=== PATIENT | female | born 1955 | race Caucasian/White ===

== ENCOUNTER 2016-07-25 05:57 | Inpatient (IN) | payer BC, OTHER ==
[2016-07-25] MEDS ORDERED: OXYCODONE (OxyCONTIN) 20 MG TAB PO ONE (06:40)
[2016-07-25] MEDS ORDERED: ACETAMINOPHEN 325 MG/TAB TABLET PO ONE (06:40)
[2016-07-25] MEDS ORDERED: GABAPENTIN 300 MG CAP ONE (06:41)
[2016-07-25 06:42] LABS: BLOOD UREA NITROGEN 15 MG/DL (7-17); CALCIUM 9.1 MG/DL (8.4-10.2); CALCULATED OSMOLALITY 267 MOs/Kg (270-290); CHLORIDE 102 mEq/L (98-107); GLUCOSE 102 MG/DL (70-99); SODIUM LEVEL 138 mEq/L (137-146)
[2016-07-25] MEDS ORDERED: Celecoxib 200 MG CAP PO ONE (06:42)
[2016-07-25] MEDS ORDERED: CEFAZOLIN 1 GM VIAL ONE (06:42)
[2016-07-25] MEDS ORDERED: DEXAMETHASONE 4 MG/ML VIAL ONE (06:45)
[2016-07-25] MEDS ORDERED: TRANEXAMIC ACID 1,000 MG in NS 100 ML IV ONE ×4 (07:00)
[2016-07-25] MEDS ORDERED: BACITRACIN 50,000 UNITS VIAL ONE (07:16)
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
[2016-07-25] MEDS ORDERED: ONDANSETRON HCL 4 MG ODT TAB PO PRN (07:21)
[2016-07-25] MEDS ORDERED: hydrALAZINE 20 MG/ML VIAL IV PRN (07:21)
[2016-07-25] MEDS ORDERED: FENTANYL 100 MCG/2 ML VIAL IV PRN (07:21)
[2016-07-25] MEDS: BUPIVACAINE LIPOSOME/PF 1.3% 20 ML VIAL INF ONE ×2 (07:21→08:25)
[2016-07-25] MEDS ORDERED: ONDANSETRON HCL 4 MG/2 ML VIAL IV PRN ×2 (07:21→10:52)
[2016-07-25] MEDS ORDERED: LABETALOL 20 MG/4 ML SYRINGE IV PRN (07:21)
[2016-07-25] MEDS ORDERED: MEPERIDINE 25 MG/ML TUBEX IV PRN (07:21)
--- NOTE | 2016-07-25 10:45 | HIMOPRPT ---
DATE OF PROCEDURE: DATE OF PROCEDURE: 07/25/16 PREOPERATIVE DIAGNOSIS: [avascular necrosis right hip] POSTOPERATIVE DIAGNOSIS: [Same] PROCEDURE: [Right] total hip arthroplasty SURGEON: Arnulfo Knight D.O. LITHARGE SUPERVISOR: [Axel Rosas PA-C] ANESTHESIA: GETA ESTIMATED BLOOD LOSS: [250 cc] COMPLICATIONS: none DRAINS: [hemovac] SPECIMENS: Femoral head FINDING: as above INDICATIONS FOR PROCEDURE: Avascular necrosis right femoral head. Right hip pain. Failure of conservative measures. DESCRIPTION OF PROCEDURE: IMPLANTS: Elana Size #[5] Accolade 2 Femoral stem. [127] degree neck angle Biolox delta [36mm -2.5mm] ceramic head [50]mm Trident PSL acetabular shell [1 6.5mm 35mm] long acetabular screw [0 degree X3 poly liner] Description: SALINA FUENTES is a 61-year-old F who [has a history of avascular necrosis of the right hip/femoral head]. She complained of severe pain within the right hip and groin area limiting her function and activities of daily living. She had failed other conservative measures and elected to proceed with right total hip arthroplasty. All risks, benefits, and alternatives to the planned surgery were discussed with the patient. The patient did understand these risks and elected to proceed. On the date of the procedure SALINA was identified in the preop holding area. The [right] lower extremity was marked as the correct operative side. The patient was then taken to the operating room where successful induction of general anesthesia was performed. Patient was given Ancef 2 g IV as well as 1 g IV of Tranexamic acid prior to incisions being made. The patient was positioned in the lateral decubitus position with all bony prominences well padded and the [right] side up. The [right] lower extremity was then prepped and draped in sterile fashion. A prescrub was performed with chlorhexidine scrub brush and alcohol prior to Chloraprep. A time out was performed, again identifying the correct patient and the right side as the correct operative side. A 10 cm incision was then made centered over the greater trochanter laterally. Dissection was continued through the subcutaneous tissues to the ITB and then this was incised in line with the skin incision. A self-retaining Charnley retractor was placed and the abductor musculature was identified. The anterior 1/3 of the abductors were then released from the greater trochanter using electric cautery in modified Hardinge Approach fashion. The capsule next was identified. A superior retractor was placed at this point. Once adequate visualization of the capsule was obtained, the capsule was excised. The hip was then dislocated. Our planned neck resection was marked and the oscillating saw was utilized to finish the osteotomy approximately 1 cm proximal to the lesser trochanter. Next the leg was brought back onto the table and acetabular retractors were placed. The base of the acetabulum was next cleared of soft tissue and the ligamentum teres was excised. Next A long-handled knife was utilized to excise the patient's acetabular labrum. The transverse acetabular ligament was identified and used as our reference for reaming and placement of the cup. We then began reaming once the cotyloid fossa was identified. We used a size [44] mm Reamer to medialize. I then sequentially reamed up to a size [50] which did give adequate coverage and good bleeding bone and this did appear to be a good fit. 50 mm trial was placed. Size [50] mm PSL cup was chosen. This was seated in the correct amount of abduction and anteversion. [ 1 screw] was placed into the posterior superior pole measuring [35] mm in length. The cup was then thoroughly irrigated and the final acetabular liner 0 was malleted into position and seated. I checked this with a [place] elevator. Attention was then turned to the femur. The neck elevating retractor was placed and a box osteotome was utilized to enter the proximal femur. Canal Finder was then utilized to enter the femoral canal. We then broached up to a size 5 stem while being careful to lateralize. I broached up to a size 5 which was a good scratch fit and was stable. A trial reduction was performed with a 36 mm -2.5mm neck length femoral head and high offset. This did restore the patient's leg lengths and the hip was stable throughout the range of motion. The trial components were then dislocated and the trial stem was removed. The final size [5 Accolade] 2 femoral stem was malleted into position. The trunion was thoroughly dried and the final Biolox ceramic and was placed. The hip was reduced and again placed through a range of motion and was stable. Leg lengths were restored. No impingement was noted. Full range of motion was obtained on the OR table. A Hemovac drain next was placed. The hip was thoroughly irrigated and the capsule was closed with interrupted 1 Vicryl sutures. The abductors were next repaired back to the trochanter through drill holes and a #5 FiberWire suture in a Anant-[place] type fashion. This was reinforced proximally and distally with 2-0 Ethibond interrupted sutures. A running Stratafix suture was utilized to close the ITB in watertight fashion. The subcutaneous tissues were closed with interrupted 2-0 Vicryl suture and the skin was closed with demarco. An Aquagel dressing was placed and an abduction pillow was placed. The patient was then carefully transferred from the OR table to her hospital bed and was transferred to the PACU in stable condition. [Axel Rosas PA-C] was the operative review assistant for this case. Due to the complex nature of the procedure, and under direct supervision, his assistance was necessary for patient positioning, prepping and draping, instrument management, soft tissue retraction, wound closure, application of dressings, and transfer of the patient.
[2016-07-25] MEDS ORDERED: DIPHENHYDRAMINE 25 MG CAP PO PRN (10:52)
[2016-07-25] MEDS ORDERED: KETOROLAC TROMETH 15 MG/1 ML VIAL IV PRN (10:52)
[2016-07-25] MEDS ORDERED: DIPHENHYDRAMINE 50 MG/ML VIAL IV PRN (10:52)
[2016-07-25] MEDS ORDERED: HYDROmorphone 1 MG INJECTION IV PRN ×2 (10:52)
[2016-07-25] MEDS ORDERED: MAGNESIUM HYDROXIDE 30 ML BOTTLE PO PRN (10:52)
[2016-07-25] MEDS ORDERED: SODIUM CHLORIDE 0.9% 3 ML FLUSH FLUSH PRN (10:52)
[2016-07-25] MEDS ORDERED: Aluminum;Magnesium;Simethicone 30 ML UDC PO PRN (10:52)
[2016-07-25] MEDS ORDERED: Pharmacy Discontinue All Previous Acetaminophen Orders SCH (11:00)
[2016-07-25] MEDS ORDERED: SODIUM CHLORIDE 0.9% 3 ML FLUSH FLUSH SCH (11:00)
[2016-07-25] MEDS ORDERED: Acetaminophen, Intravenous 1,000 MG/100 ML IVBOT IV ONE (11:00)
[2016-07-25] MEDS ORDERED: NALOXONE 0.4 MG/ML AMPULE IV SCH (11:00)
[2016-07-25] MEDS ORDERED: Pharmacy Order Set Alert SCH (11:00)
[2016-07-25] MEDS ORDERED: FENTANYL 100 MCG/2 ML VIAL ONE (11:12)
[2016-07-25] MEDS: FENTANYL 100 MCG/2 ML VIAL IV PRN ×2 (11:14→12:25)
--- NOTE | 2016-07-25 11:57 | DIRPT ---
CLINICAL DATA: Postop right hip EXAM: PELVIS - 1-2 VIEW COMPARISON: 04/11/2016 FINDINGS: Total right hip arthroplasty without periprosthetic fracture or dislocation. Left femoral head avascular necrosis with cystic change. No progressive collapse. IMPRESSION: 1. No acute finding after right hip arthroplasty. 2. Left femoral head AVN. Electronically Signed By: Gurmeet Donahue M.D. On: 07/25/2016 11:54
[2016-07-25] MEDS ORDERED: Vaccine Screening Complete SCH (14:00)
[2016-07-25] MEDS: NS 1,000 ML IV SCH (14:10)
[2016-07-25] MEDS: VITAMINS, MULTIPLE CAP PO SCH (14:11)
[2016-07-25] MEDS: CALCIUM CARBONATE + VITAMIN D 500 MG TAB PO SCH ×2 (14:11→17:25)
[2016-07-25] MEDS: Cefazolin 2gm/50 ml D5W 2 GM/50 ML RTU IV SCH ×2 (14:12→20:13)
[2016-07-25] MEDS: SODIUM CHLORIDE 0.9% 3 ML FLUSH FLUSH SCH (14:32)
[2016-07-25] MEDS: OXYCODONE HCL 5 MG TABLET PO PRN (15:10)
[2016-07-25] MEDS: PANTOPRAZOLE 40 MG TAB PO SCH (17:25)
[2016-07-25] MEDS: Aspirin (Orange Enteric Coated) 325 mg tab PO SCH (17:25)
[2016-07-25] MEDS: Celecoxib 200 MG CAP PO SCH (17:25)
[2016-07-25] MEDS: Acetaminophen, Intravenous 1,000 MG/100 ML IVBOT IV SCH ×2 (17:25→22:34)
--- NOTE | 2016-07-25 17:53 | SC.ANESPOS ---
Post-Anesthesia Note LOC: Fully Awake Post-Anesthesia Assessment: Awake, Returned to Baseline, Hemodynamically Stable , Pain Control Adequate Phase I & II Recovery Complete: Yes Apparent Anesthesia Complication: No : N PACU Discharge Time: 13:10 - Vital Signs Blood Pressure: 118/69 Pulse: 72 Resp Rate: 16 O2 Sat: 98 Temp: 97.8 F - Comments Anesthesia Discharge Time Report Time 13:10
[2016-07-25] MEDS: OXYCODONE (OxyCONTIN) 10 MG TAB PO SCH (20:13)
[2016-07-25] MEDS: DOCUSATE-SENNA CONCENTRATE TAB PO SCH (20:13)
[2016-07-26] MEDS: Cefazolin 2gm/50 ml D5W 2 GM/50 ML RTU IV SCH (05:08)
[2016-07-26] MEDS: NS 1,000 ML IV SCH ×2 (05:09→11:44)
[2016-07-26] MEDS: PANTOPRAZOLE 40 MG TAB PO SCH ×2 (05:38→16:53)
[2016-07-26] MEDS: Acetaminophen, Intravenous 1,000 MG/100 ML IVBOT IV SCH ×2 (05:38→11:43)
[2016-07-26] MEDS: SODIUM CHLORIDE 0.9% 3 ML FLUSH FLUSH SCH ×2 (05:38→16:54)
--- NOTE | 2016-07-26 05:55 | PCM.ORTHBL ---
- Subjective Post Op Day: 1 Daily Assessment - Patient: Reports: No new complaints, Awake Alert Oriented x4 , Pain is less, Tolerating Regular Diet, Voiding without difficulty, Afebrile, Ambulating with Physical Therapist, Other (Denies chest pain). Denies: Difficulty Swallowing, Shortness of breath, Nausea, Vomiting - Objective / Physical Exam Vital Signs: Temperature: 98.2 F (07/26/16 05:52) HR: 80 (07/26/16 05:52)RR: 18 (07/26/16 05: 52) BP: 143/71 (07/26/16 05:52)Pulse Ox: 94 (07/26/16 05:52) General: Alert, Oriented x3, Cooperative, No acute distress, Well appearing Musculoskeletal / Extremities: 2 plus Dorsalis Pedis Pulse, Dressing Clean/Dry/ Intact. negative: Tenderness (no calf tenderness) Neurological: Positive Sensation First Dorsal Web Space, Sensation to light touch intact, Extensor Hallicus Longus Intact, Flexor Hallicus Longus Intact, Dorsiflexion Intact, Plantarflexion Intact - Assessment and Plan (1) Status post right hip replacement Acute Z96.641 - PRESENCE OF RIGHT ARTIFICIAL HIP JOINT Present on Admission: Yes Plan: POD#1 s/p right FRANK PT/OT/WBAT TEDS/SCDS/ECASA 325mg BID for 30 days post-op for DVT prophylaxis Continue pain management D/c planning, plan for home pending progress with PT
[2016-07-26 07:05] LABS: MPV 7.9 fL (7.4-10.4)
[2016-07-26 07:33] LABS: BLOOD UREA NITROGEN 10 MG/DL (7-17); CALCIUM 9.1 MG/DL (8.4-10.2); CALCULATED OSMOLALITY 258 MOs/Kg (270-290); CHLORIDE 101 mEq/L (98-107); GLUCOSE 87 MG/DL (70-99); SODIUM LEVEL 135 mEq/L (137-146)
[2016-07-26] MEDS ORDERED: Remove Transdermal Scopolamine Patch after 24 hours ONE (08:00)
[2016-07-26] MEDS: Celecoxib 200 MG CAP PO SCH ×2 (08:28→16:53)
[2016-07-26] MEDS: Aspirin (Orange Enteric Coated) 325 mg tab PO SCH ×2 (08:28→16:53)
[2016-07-26] MEDS: FLUOXETINE 20 MG CAP PO SCH (08:29)
[2016-07-26] MEDS: OXYCODONE HCL 5 MG TABLET PO PRN ×3 (08:29→19:25)
[2016-07-26] MEDS: OXYCODONE (OxyCONTIN) 10 MG TAB PO SCH ×2 (08:29→20:19)
[2016-07-26] MEDS: VITAMINS, MULTIPLE CAP PO SCH (11:44)
[2016-07-26] MEDS: CALCIUM CARBONATE + VITAMIN D 500 MG TAB PO SCH ×2 (11:44→16:53)
[2016-07-26] MEDS ORDERED: LORAZEPAM 1 MG TAB PO PRN (15:29)
[2016-07-26] MEDS ORDERED: LORAZEPAM 2 MG/ML VIAL IV PRN (15:29)
[2016-07-26] MEDS ORDERED: Medication Special Instructions SCH (16:00)
--- NOTE | 2016-07-26 19:49 | PCM.DCS92 ---
- Final/Secondary Discharge Diagnosis (1) Status post right hip replacement Acute Z96.641 - PRESENCE OF RIGHT ARTIFICIAL HIP JOINT Present on Admission: Yes Plan/Goal/Comment: Aquacel dressing to be removed on POD#7, then daily dressing changes as needed Anterolateral hip precautions Continue pain management ECASA 325mg BID for 30 days post-op Discharge Disposition: Home Discharge Condition: Stable Cognitive Discharge Status: Unimpaired Fuctional Discharge Status: Walker Assistance, Recent lower extremety joint replacement, Post-op Weakness Physician Follow up/Referrals: Arnulfo Knight DO [Staff Physician] - Two Weeks New Prescriptions: Aspirin (OrangeEnteric Coated) [Ecotrin] 325 mg PO BID #60 tab Celecoxib (anti-inflammatory) [Celebrex] 200 mg PO DAILY #12 capsule Docusate-Senna Concentrate [Senokot S or Denice Colace] 1 each PO QHS #30 tab Oxycodone Immediate Release [Oxycodone Immediate Release (OxyIR)] 5 mg PO Q4H PRN #40 tab PRN Reason: Pain Discharge Home Medication List Fluoxetine HCl [Prozac] 20 mg PO DAILY 06/18/16 [History Confirmed 07/25/16 Last Taken 07/24/16] Methocarbamol [Robaxin] 500 mg PO Q6 PRN 06/18/16 [History Confirmed 07/25/16 Last Taken 1 Week Ago] [place]-3/Dha/Epa/Fish Oil [Fish Oil 1,000 mg Softgel] 2 each PO DAILY 06/18/16 [ History Confirmed 07/25/16 Last Taken 2 Days Ago] Aspirin (OrangeEnteric Coated) [Ecotrin] 325 mg PO BID #60 tab 07/26/16 [Rx Last Taken Unknown] Celecoxib (anti-inflammatory) [Celebrex] 200 mg PO DAILY #12 capsule 07/26/16 [ Rx Last Taken Unknown] Docusate-Senna Concentrate [Senokot S or Denice Colace] 1 each PO QHS #30 tab 06/30 [Rx Last Taken Unknown] Oxycodone Immediate Release [Oxycodone Immediate Release (OxyIR)] 5 mg PO Q4H PRN #40 tab 07/26/16 [Rx Last Taken Unknown] Additional Instructions: DATE: 07/26/16 Post Hospital Stay Joint Precautions Anterolateral Hip Joint Precautions For the safety of your new hip, you should follow these precautions, especially during the first three months after surgery. n DO use one or two pillows between your legs when sleeping, especially when you turn onto the non-operative side to rest. This will keep your surgery hip in a good position. n DO NOT cross your surgery leg over your other leg. n DO NOT turn your surgery leg inward, or allow knees to touch. See photo #1. n DO NOT bend your surgery hip more than 90 degrees. See photo #2. Also remember .. n DO NOT pivot or twist on the surgery leg. n DO NOT reach forward to the floor from a sitting position. See photo #3. n DO NOT sit on low chairs or low toilets. It is important that you sit with your hips even with or higher than your knees. Also, use a bedside commode. n DO NOT do any of the following activities until cleared by your surgeon: 1. Return to work 2. Drive a car 3. Participate in sports 4. Engage in sex 5. Take a tub bath Diet at Discharge: As Tolerated, Regular Activity: As Tolerated, No Heavy Lifting, No Driving Call Office For: Worsening Symptoms, Wound is Draining Pus, Fever over 101 F, Fever over 100.5, Wound is Painful, Wound is Red, Weight Gain (see below), Pain Uncontrolled By Meds, Other (See Details) Discontinue use of:: Alcohol, All Illegal Substances, All Types of Tobacco - DC Summary Notes Hospital Course Note:: Discharge summary on patient named SALINA FUENTES admitted to [facility] on 07/25/16 by Arnulfo Knight DO. Date of discharge is [07/27/16]. Afebrile. Hospital course and surgery uneventful. Progressing well with PT. Anterolateral hip precautions. Continue pain management. ECASA 325mg BID for 30 days post-op for DVT prophylaxis. Aquacel dressing to be removed on POD#7, then daily dressing changes as needed. Stable for discharge home. To follow- up in office in 2 weeks or earlier as needed. Wound Care Surgical Site: Yes Site Description (if applicable): right hip Dressing/Site Care (if applicable): Aquacel dressing to be removed on POD#7, then daily dressing changes as needed Medical Equipment (Order must still be written on paper): Walker Remove Transdermal Scopalamine patch if present: YES Medication Instructions: Take Stool Softener Continue Ice Packs/Ice Machine to Operative Area: Yes Activity as Tolerated: Yes Weight Bearing: Full Abduction Pillow: YES Current Dressing: Aquacel Dressing Care: Keep Wound Clean & Dry, Shower with Tegaderm Dsg, No Tub Baths, Other Instructions Below (Aquacel dressing to be removed on POD#7, then daily dressing changes as needed) - Consults/Home Health Outpatient Consults: Home Health, Physical Therapy - Physical Exam Vital Signs: Initial Vitals Temperature 97.1 F L 07/25/16 06:36 Pulse Rate 64 07/25/16 06:36 Respiratory Rate 16 07/25/16 06:36 Blood Pressure 173/81 07/25/16 06:36 Pulse Oxygen Saturation 99 07/25/16 06:36 Last Vital Signs Temp 98.2 F 07/27/16 04:25 Pulse 63 07/27/16 04:25 Resp 18 07/27/16 04:25 BP 145/74 07/27/16 04:25 Pulse Ox 92 07/27/16 04:25 Constitutional: No apparent distress, Alert, Well appearing Oriented to: Time, Person, Place - HEENT Head: Normal - Musculoskeletal Extremities: Pedal Pulse, Other (dressing clean, dry, intact). negative: Calf Tenderness - Neurologic Memory Impaired: Normal Motor Function: Normal Cranial Nerve: Normal Cerebellar: Normal Mood Description: Normal Thought: Coherent Perception: Normal
[2016-07-26] MEDS: DOCUSATE-SENNA CONCENTRATE TAB PO SCH (20:18)
[2016-07-26] MEDS: ACETAMINOPHEN 325 MG/TAB TABLET PO SCH (20:19)
[2016-07-27] MEDS: SODIUM CHLORIDE 0.9% 3 ML FLUSH FLUSH SCH (05:40)
[2016-07-27] MEDS: ACETAMINOPHEN 325 MG/TAB TABLET PO SCH (05:40)
[2016-07-27] MEDS: PANTOPRAZOLE 40 MG TAB PO SCH (05:40)
[2016-07-27 07:14] VITALS: PULSE 63
--- NOTE | 2016-07-27 07:19 | PCM.ORTHBL ---
- Subjective Post Op Day: 2 Daily Assessment - Patient: Reports: No new complaints, Awake Alert Oriented x4 , Feels better, Still having pain, Pain is less, Tolerating Regular Diet, Voiding without difficulty, Afebrile, Ambulating with Physical Therapist, Bowel Movement, Other (Denies chest pain). Denies: Difficulty Swallowing, Shortness of breath, Nausea, Vomiting - Objective / Physical Exam Vital Signs: Temperature: 98.2 F (07/27/16 04:25) HR: 63 (07/27/16 04:25)RR: 18 (07/27/16 04: 25) BP: 145/74 (07/27/16 04:25)Pulse Ox: 92 (07/27/16 04:25) General: Alert, Oriented x3, Cooperative, No acute distress, Well appearing Musculoskeletal / Extremities: 2 plus Dorsalis Pedis Pulse, Dressing Clean/Dry/ Intact. negative: Tenderness (no calf tenderness) Neurological: Positive Sensation First Dorsal Web Space, Sensation to light touch intact, Extensor Hallicus Longus Intact, Flexor Hallicus Longus Intact, Dorsiflexion Intact, Plantarflexion Intact Laboratory/Diagnostics Reviewed: 07/27/16 06:34 07/26/16 06:22 - Assessment and Plan (1) Status post right hip replacement Acute Z96.641 - PRESENCE OF RIGHT ARTIFICIAL HIP JOINT Present on Admission: Yes Plan: POD#2 s/p right FRANK PT/OT/WBAT TEDS/SCDS/ECASA 325mg BID for 30 days post-op for DVT prophylaxis Continue pain management D/c plan for home with HH/PT.
[2016-07-27] MEDS: Aspirin (Orange Enteric Coated) 325 mg tab PO SCH (07:54)
[2016-07-27] MEDS: OXYCODONE (OxyCONTIN) 10 MG TAB PO SCH (07:54)
[2016-07-27] MEDS: FLUOXETINE 20 MG CAP PO SCH (07:54)
[2016-07-27] MEDS: Celecoxib 200 MG CAP PO SCH (07:54)
[2016-07-27 10:58] VITALS: BP 127/60; TEMP 98.4
== END 2016-07-27 13:00 | disposition home health service (06) | DRG 470 ==
LOC: SDC 05:57 → MPS3 13:34
PROVIDERS: ADMIT Orthopaedic Surgery; ATTEND Orthopaedic Surgery
PROC: 0SR903Z Replacement of Right Hip Joint with Ceramic Synthetic Substitute, Open Approach (ICD-10-PCS; principal; 2016-07-25 07:15)
DX: M87.851 Other osteonecrosis, right femur (principal); F17.200 Nicotine dependence, unspecified, uncomplicated; Z79.899 Other long term (current) drug therapy
CPT/HCPCS: 72170; 80048; 85027; 86850; 86900; 86901; 97161; 97165; 99406; C9290; G0237; J0131; J0690; J1100; J3010; J3490; J7030